=== PATIENT | male | born 1985 | race Caucasian/White ===

== ENCOUNTER → 2017-10-24 | Outpatient (CLI) | payer OTHER ==
[~2017-10-24] MED LIST: ATOR-24 PO; FLUT0.15; HYDR-3419 PO; INSU100I23 SQ; LISI-787 PO; METF-384 PO; METO25TA56 PO; NVLGIPEN SC; SERT100T PO; WLLSR150 PO
[2017-10-24 10:13] LABS: HEMATOCRIT 45.7 % (42-52); MEAN CELL VOLUME 83.7 fL (80-100); MEAN CORPUSCULAR HEMOGLOBIN 29.3 pg (25-34); MEAN PLATELET VOLUME 8.8 fL (7.4-10.4); PLATELET COUNT 208 K/uL (130-400); RED CELL DISTRIBUTION WIDTH CV 12.6 % (11.5-14.5); RED CELL DISTRIBUTION WIDTH SD 37.9 fL (36.4-46.3); WHITE BLOOD COUNT 7.68 K/uL (4.8-10.8)
[2017-10-24 10:21] LABS: PTT PATIENT 27.1 SECONDS (21.0-31.0)
== END | disposition home or self-care (01) ==
LOC: C.LAB 09:09
PROVIDERS: ATTEND Podiatrist
DX: Z01.812 Encounter for preprocedural laboratory examination (principal)

== ENCOUNTER → 2017-10-25 | Day surgery (SDC) | payer OTHER ==
[2017-10-13 10:19] VITALS: Ht 177.8 cm; Wt 120.5 kg
[~2017-10-25] VITALS: Ht 177.8 cm; Wt 120.5 kg
[~2017-10-25] MED LIST changes: +ATROPINE SULFATE 0.1 MG/ML 5ML SYR IV PRN; +BUPIVACAINE 0.5 % 5 MG/1 ML MPF 30ML VIAL ONE; +CEFAZOLIN 3000MG IV PUSH 22.5 ML IV SCH; +EpHEDrine SULFATE INJ 50 MG/ML AMP IV PRN; +FENTANYL CITRATE INJ 50 MCG/1 ML 2 ML VIAL ONE; +LACTATED RINGER'S 1000ML 1,000 ML IV SCH; +LIDOCAINE HCL 2% 2 ML VIAL (20MG/ML) ONE; +MIDAZOLAM HCL 1 MG/ML 2ML VIAL ONE; +NovoLIN-R INSULIN PER UNIT CHARGE IV STA; +NovoLIN-R INSULIN PER UNIT CHARGE ONE; +PROPOFOL IV EMULSION 10 MG/ML 20 ML VIAL ONE
--- NOTE | 2017-10-25 08:06 | History & Physical Bridge - [place] ---
H&P Re-Evaluation Bridge Note: I have examined the patient, reviewed the History & Physical and in the interval since the performance of the History & Physical I have noted the following changes of clinical significance: No changes noted Plan for resection fracture fragment left hallux IPJ w or w/o plantar plate repair 1st MTPJ
--- NOTE | 2017-10-25 08:09 | Discharge Instructions ---
Discharge Instructions Date of Service October 25, 2017. Visit Reason for Visit: Left Foot Nondisplaced Fracture Proximal Phalanx Discharge Discharge Diagnosis / Problem: proximal phalanx fracture left foot Discharge Goals Goal(s): Decrease discomfort Medications Stopped Medications Name(s): Metformin last dose Monday no blood thinners Activity Recommendations Activity Limitations: per Instructions/Follow-up section Weightbearing Status: Left weightbearing (as tolerated) Anesthesia . Post Anesthesia Instructions: If you have had General Anesthesia or IV Sedation: * Do not drive today. * Resume driving when surgeon permits. * Do not make important decisions or sign legal documents today. * Call surgeon for: 1. Temperature elevations greater than 101 degrees F. 2. Uncontrollable pain. 3. Excessive bleeding. 4. Persistent nausea and vomiting. 5. Medication intolerance (nausea, vomiting or rash). * For nausea and vomiting use only clear liquids such as: tea, soda, bouillon until nausea subsides, then gradually increase diet as tolerated. * If you have any concerns or questions, call your surgeon's office. If physician is unavailable and it is an emergency, call 911 or go to the nearest emergency room. . Diet Recommendations Recommended Home Diet: resume previous diet Pending Studies Studies pending at discharge: no Medical Emergencies . Who to Call and When: Medical Emergencies: If at any time you feel your situation is an emergency, please call 911 immediately. . Non-Emergent Contact Non-Emergency issues call your: Surgeon . . "Provider Documentation" section prepared by Zohaib Bingham. .
--- NOTE | 2017-10-25 09:04 | [facility] Post Operative Brief Note ---
Immediate Operative Summary Operative Date October 25, 2017. Pre-Operative Diagnosis Left Foot Nondisplaced Fracture Proximal Phalanx Post-Operative Diagnosis Same Procedure(s) Performed Left Removal Fracture Hallux Interphalangeal Joint Surgeon Dr. Bingham Medical Housekeeper Surgeon(s) None Estimated Blood Loss 3 ml Findings Consistent with Post-Op Diagnosis Specimens None Anesthesia Type MAC Complication(s) none
[2017-10-25 09:10] VITALS: TEMP 36.1
--- NOTE | 2017-10-25 09:20 | [facility] Operative Report ---
Operative Report Operative Date October 25, 2017. Pre-Operative Diagnosis Left Foot Nondisplaced Fracture Proximal Phalanx Post-Operative Diagnosis Same Procedure(s) Performed Left Removal Fracture Hallux Interphalangeal Joint Surgeon Dr. Bingham Exercise Planner Surgeon(s) None Estimated Blood Loss 3 ml Specimens None Anesthesia Type MAC Complication(s) none Indications Patient is failed outpatient therapy please see last clinical note for full HPI. All risks benefits complications and alternatives to the procedure were discussed prior to surgery and he agrees to proceed. Description of Procedure Patient was taken from the preoperative holding area and placed in the operating room in the normal supine position. Attention was directed to left lower extremity. After induction of MAC, a local field block was applied to left first metatarsophalangeal joint. Approximately 20 cc of half percent Marcaine plain were applied to this area. Left lower extremity was then prepped and draped in normal sterile fashion. Left lower extremity was elevated for exsanguination. Left ankle tourniquet was then inflated 250 mmHg. Attention was then directed to the left hallux where an incision was mapped out and carried out across the interphalangeal joint of the left hallux. Dissection was carried down to the level of the extensor hallucis longus tendon with care to retract all neurovascular structures and cauterizing all bleeders with dissection. The extensor hallucis longus tendon was transected and retracted. At this time the joint of the hallux interphalangeal joint was incised exposing the articular cartilage of the base of the distal phalanx as well as the head of the proximal phalanx. Head of the proximal phalanx was noted to have a cartilaginous defect at the plantar lateral margin compassing about 15% of the articular surface. 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 This nonunion was freed using osteotome and scalpel and resected in toto. Smooth margins were felt after freeing the fracture fragment. Upon inspection the plantar plate of the joint appeared to be normal and intact. No indication for plantar plate repair was warranted. At this time site was flushed with copious amounts normal sterile saline. Incision site was then closed in a layered fashion. Final pictures were taken via fluoroscopy at this time. No residual fracture fragments were noted. Patient tolerated the anesthesia procedure well and was transported to the PACU with vital signs stable and neurovascular status intact to left lower extremity. I attest to the content of the Intraoperative Record and any orders documented therein. Any exceptions are noted below.
--- NOTE | 2017-10-25 09:38 | Anesthesia Progress Nt - [facility] ---
Anesthesia Post Op Note Date & Time October 25, 2017 at 09:38 Vital Signs Pain Intensity: 0 Vital Signs Past 12 Hours Date Time Temp Pulse Resp B/P (MAP) Pulse Ox O2 Delivery O2 Flow Rate FiO2 10/25/17 09:10 36.1 75 18 122/78 (93) 96 Room Air 10/25/17 07:16 36.9 77 20 130/89 (103) 95 Room Air Notes Mental Status: alert / awake / arousable, participated in evaluation Pt Amnestic to Procedure: Yes Nausea / Vomiting: adequately controlled Pain: adequately controlled Airway Patency, RR, SpO2: stable & adequate BP & HR: stable & adequate Hydration State: stable & adequate Anesthetic Complications: no major complications apparent
[2017-10-25 09:39] VITALS: BP 134/85; PULSE 70; O2SAT 97
--- NOTE | 2017-10-25 09:49 | DIAGNOSTIC IMAGING REPORT ---
INTRAOPERATIVE FLUOROSCOPIC IMAGES OF THE LEFT FIRST TOE CLINICAL HISTORY: LEFT 1ST METATARSOPHALANGEAL JOINT COMPARISON STUDY: None. FLUOROSCOPY TIME: 3 seconds. FINDINGS: There is no unexpected radiopaque foreign body. Cortical irregularity with lucency within the base of the distal phalanx is noted. This is likely chronic. IMPRESSION: Intraoperative fluoroscopic images of the left first toe, as described above. Electronically signed by: Jim Moseley M.D. 10/25/2017 9:47 AM Dictated Date/Time: 10/25/2017 9:45 AM
== END | disposition home or self-care (01) ==
LOC: X.SURG 06:46
PROVIDERS: ATTEND Podiatrist
DX: S92.41 Fracture of proximal phalanx of great toe (principal); X58.XXXS Exposure to other specified factors, sequela; M65.872 Other synovitis and tenosynovitis, left ankle and foot; J45.909 Unspecified asthma, uncomplicated; E11.9 Type 2 diabetes mellitus without complications; I10 Essential (primary) hypertension; E78.00 Pure hypercholesterolemia, unspecified; E66.9 Obesity, unspecified; Z68.31 Body mass index [BMI] 31.0-31.9, adult; Z87.891 Personal history of nicotine dependence